=== PATIENT | female | born 2000 | race Two or more races ===

== ENCOUNTER → 2020-04-01 | Outpatient (CLI) | payer OTHER ==
--- NOTE | 2020-04-01 16:33 | RADIOLOGY REPORT (SQ) ---
EXAM DESCRIPTION: U/S NON-OB PELVIS TV W/O DOP IMAGES COMPLETED DATE/TIME: 04/01/2020 3:20 pm REASON FOR STUDY: (R10.2)PELVIC AND PERINEAL PAIN R10.2 PELVIC AND PERINEAL PAIN COMPARISON: None. TECHNIQUE: Dynamic and static grayscale images acquired of the pelvis via transvaginal approach and recorded on PACS. Additional selected color Doppler and spectral images recorded. LIMITATIONS: None. FINDINGS: UTERUS: Contour normal. No mass. ENDOMETRIAL STRIPE: No focal or generalized thickening. No masses. CERVIX: No nabothian cysts. RIGHT OVARY AND DOPPLER: Normal size. No worrisome masses. Normal arterial vascular flow without evid ence for torsion. LEFT OVARY AND DOPPLER: There is a dominant complex left ovarian cyst measuring 4.7 x 3.9 by 4.3 cm w ith lace-like appearance (thin internal septations). Color Doppler demonstrates no internal vascular ity or vascular nodularity. FREE FLUID: Trace free fluid in the right adnexa, consistent with physiologic fluid. OTHER: No other significant finding. MEASUREMENTS: UTERUS: 7.2 x 4 by 4.6 cm ENDOMETRIAL STRIPE: 8 mm RIGHT OVARY: 4.3 x 1.7 x 2 cm LEFT OVARY: 5.5 x 4.2 x 5.3 cm IMPRESSION: 1. Dominant complex cyst in the left ovary with appearance consistent with a hemorrhagic ovarian foll icle. A follow-up pelvic ultrasound in 4-6 weeks could be performed to evaluate for resolution. 2. Normal sonographic appearance of the uterus and right ovary. TECHNICAL DOCUMENTATION: JOB ID: [id number] 2010 [employer]- All Rights Reserved Reading location - IP/workstation name: [email or web address]
== END ==
LOC: RAD 02:57
PROVIDERS: ATTEND Nurse Practitioner Family
DX: N83.02 Follicular cyst of left ovary (principal); R10.2 Pelvic and perineal pain
CPT/HCPCS: 76830

== ENCOUNTER → 2020-05-05 | Outpatient (CLI) | payer OTHER ==
--- NOTE | 2020-05-06 10:41 | RADIOLOGY REPORT (SQ) ---
EXAM DESCRIPTION: CHEST PA/LATERAL IMAGES COMPLETED DATE/TIME: 05/05/2020 4:08 pm REASON FOR STUDY: OTHER CHEST PAIN COMPARISON: None. EXAM PARAMETERS: NUMBER OF VIEWS: two views TECHNIQUE: Digital Frontal and Lateral radiographic views of the chest acquired. RADIATION DOSE: NA LIMITATIONS: none FINDINGS: LUNGS AND PLEURA: No opacities, masses or pneumothorax. No pleural effusion. MEDIASTINUM AND HILAR STRUCTURES: No masses or contour abnormalities. HEART AND VASCULAR STRUCTURES: Heart normal size. No evidence for failure. BONES: No acute findings. HARDWARE: None in the chest. OTHER: No other significant finding. IMPRESSION: NO SIGNIFICANT RADIOGRAPHIC FINDING IN THE CHEST. TECHNICAL DOCUMENTATION: JOB ID: [id number] 2010 [employer]- All Rights Reserved Reading location - IP/workstation name: [email or web address]
== END ==
LOC: OD 15:48
PROVIDERS: ATTEND Nurse Practitioner Family
DX: R07.89 Other chest pain (principal)
CPT/HCPCS: 71046

== ENCOUNTER 2020-05-06 18:48 | Emergency (ER) | payer OTHER ==
--- NOTE | 2020-05-06 19:26 | EKG REPORT ---
SEVERITY:- NORMAL ECG - SINUS RHYTHM : Confirmed by: Honey Fu MD 06-May-2020 19:25:29
--- NOTE | 2020-05-06 19:49 | ER Document Report ---
HPI - HPI Time Seen by Provider: 05/06/20 19:44 Pain Level: 3 Notes: Otherwise healthy 20-year-old female who presents with right-sided chest pain to the scapular area. She states the pain has been going on for last 2 to 3 days. She reports the pain is with movement. She denies any associated symptoms such as nausea, vomiting, diaphoresis or shortness of breath. She denies any trauma to the area. - ROS Systems Reviewed and Negative: Yes All other systems reviewed and negative - CARDIOVASCULAR Cardiovascular: REPORTS: Chest pain - REPRODUCTIVE LMP: 03/22 cycles irregular Reproductive: DENIES: : Past Medical History - General Information source: Patient - Social History Smoking Status: Never Smoker Chew tobacco use (# tins/day): No Frequency of alcohol use: Social Drug Abuse: None Family History: Reviewed & Not Pertinent - Medical History Medical History: Negative Surgical Hx: Negative Vertical Provider Document - CONSTITUTIONAL Notes: PHYSICAL EXAMINATION: GENERAL: Well-appearing, well-nourished and in no acute distress. HEAD: Atraumatic, normocephalic. EYES: Pupils equal round extraocular movements intact, conjunctiva are normal. ENT: Nares patent NECK: Normal range of motion LUNGS: No respiratory distress lung sounds clear and equal bilaterally., Cardiac: Heart sounds S1-S2 present, normal rate, normal rhythm. Musculoskeletal: Normal range of motion, reproducible chest pain with palpation to the right upper chest pain. NEUROLOGICAL: Normal speech, normal gait. PSYCH: Normal mood, normal affect. SKIN: Warm, Dry, normal turgor, no rashes or lesions noted. Course - Re-evaluation Re-evalutation: Chest x-ray was negative. EKG as outlined below. Chest pain is reproducible. Likely musculoskeletal. Will discharge patient home with a prescription for muscle relaxers. - Vital Signs Vital signs: Temp Pulse Resp BP Pulse Ox 98.4 F 68 18 115/65 100 05/06/20 19:04 05/06/20 19:04 05/06/20 19:04 05/06/20 19:04 05/06/20 19:04 - Diagnostic Test Radiology reviewed: Image reviewed, Reports reviewed - EKG Interpretation by Me EKG shows normal: Sinus rhythm - Rate of 67, normal axis, normal intervals, no ST segment elevations or depressions to suggest ischemia. Discharge - Discharge Clinical Impression: Chest pain Qualifiers: Chest pain type: unspecified Qualified Code(s): R07.9 - Chest pain, unspecified Condition: Stable Disposition: HOME, SELF-CARE Additional Instructions: Chest Wall Pain Your chest pain has been diagnosed as coming from the chest wall. This is often caused by straining the muscles or joints in the chest during physical activity, direct trauma, coughing, or vigorous vomiting. Persons with arthritis are especially prone to this type of pain, due to inflammation of the cartilage joints near the breast bone. Occasionally, no cause can be found. Rest from strenuous physical activity. This kind of chest pain is usually made worse by movement of the chest. Depending on the symptoms, we may prescrib e medicine for pain, muscle relaxation, and antiinflammatory effects. If the pain is new, and seems to be due to muscle strain, cold packs can help. Otherwise, apply gentle warmth to the painful area for 15 minutes every hour or two. You should contact the doctor immediately if things change. Further evaluation is needed if you develop a fever or cough, if the nature of the pain changes, or if you become short of breath. Take medications as prescribed, ibuprofen 600mg every 6 hours. Follow-up with primary care if not improving in the next 6 weeks. Prescriptions: Methocarbamol [Robaxin 750 mg Tablet] 750 mg PO Q6HP PRN #30 tablet PRN Reason: Referrals: ZAYNAB MONTOYA, EPIC SPECIALIST [Primary Care Provider] - Follow up as needed
--- NOTE | 2020-05-06 20:39 | RADIOLOGY REPORT (SQ) ---
PA and lateral chest radiograph: 05/06/2020 7:38 PM [employer] History: 20-year old patient with right-sided chest pain. Comparison: Chest radiograph performed 05/05/2020 Findings: The cardiomediastinal silhouette is normal in size. No pneumothorax is seen. No discrete pleural effusion is apparent. No acute airspace opacities are seen. Impression: No acute airspace opacities are seen.
[2020-05-06 22:35] VITALS: BP 123/79
== END 2020-05-06 21:51 | disposition home or self-care (01) ==
LOC: ER 18:48
DX: R07.9 Chest pain, unspecified (principal)
CPT/HCPCS: 71046; 93005; 93010; 99284